=== PATIENT | female | born 1990 | race African-American/Black ===

== ENCOUNTER 2016-11-08 19:40 | Inpatient (IN) | payer OTHER ==
[2016-11-08] MEDS ORDERED: DINOPROSTONE 10 MG VAGINAL SUPPOSITORY VG ONE (20:30)
[2016-11-08] MEDS ORDERED: BUTORPHANOL TARTRATE 1 MG/ML VIAL IVPB ONE (20:50)
--- NOTE | 2016-11-08 20:58 | HP ---
Past Medical History - Admission Chief Complaint: induction of labor History of Present Illness: 26 yo @ 41 5/7 wks by LMP consistent with first trimester ultrasound, EDC ( 10/28/2016) complicated by: 1. Post-term - BPP / (11/03/16); NST reactive 2. Distant hx/o asthma, last attack as child 3. First trimester travel to [facility] - declines Zika screen Patient without acute complaints. Reports mild contractions began this morning at 0600. She denies leakage of fluid, vaginal bleeding. She reports movement. History Source: Patient Limitations to Obtaining History: No Limitations - Past Medical History Cardiovascular: No: HTN Pulmonary: Yes: Asthma ...: 4 ...Para: 0 ...Term: 0 ...: 0 ...Spon : 0 ...Induced : 3 ... Weeks Gestation by Dates: 41.3 ...EDC by Dates: 10/28/16 ...EDC by Sono: 10/27/16 - Past Surgical History Past Surgical History: Yes: Hernia Repair (umbilical hernia repair) Hx Myomectomy: No Hx Transabdominal Cerclage: No Additional Surgical History: eTOP - Alcohol/Substance Use Hx Alcohol Use: No History of Substance Use: reports: None - Social History Usual Living Arrangement: Yes: With Spouse History of Recent Travel: Yes Home Medications - Allergies Allergies/Adverse Reactions: Allergies Allergy/AdvReac Type Severity Reaction Status Date / Time Penicillins Allergy Verified 11/08/16 20:25 shellfish derived Allergy Verified 11/08/16 20:25 Family Disease History - Family Disease History Family History: Denies Review of Systems - Review of Systems Constitutional: reports: No Symptoms Cardiovascular: reports: No Symptoms Respiratory: reports: No Symptoms Gastrointestinal: reports: No Symptoms Genitourinary: reports: No Symptoms Musculoskeletal: reports: No Symptoms Neurological: reports: No Symptoms Endocrine: reports: No Symptoms Psychiatric: reports: No Symptoms Physical Exam - Maternity Constitutional: Yes: Well Nourished, No Distress, Calm Cardiovascular: Yes: Regular Rate and Rhythm Lungs: Clear to auscultation - Abdominal Exam/OB Number of Fetuses: Single Presentation: Vertex Contractions: Yes Regularity: Irregular Intensity: Moderate Monitor Mode: External Heart Rate (range): 125 Category: I Accelerations: Non-Uniform Decelerations: None - Vaginal Exam/OB Vaginal Bleediing: No Dilatation (cm): 1 Effacement (%): 20 Amniotic Membrane Status: Intact Station: -3 - Physical Exam Edema: No Psychiatric: Yes: Alert, Oriented - Labs Lab Results: PNL- O positive, antibody negative; RPR NR, HBsAg negative; Rubella Immune, HIV negative; GBS negative Hemorrhage Risk Assessment - Risk Factors Medium Risk Factors: Yes: None High Risk Factors: Yes: None Risk Score: 1 Risk Level: Medium Risk Assessment/Plan 26 yo @ 41 + weeks induction of labor, postdates 1. Admit to L&D, consents reviewed and signed. Reviewed risk of induction failure, heart rate changes, tachysystole, need for emergent delivery. She expressed understanding and all questions answered. 2. Routine labs collected and sent 3. Category I FHT, requires no intervention 4. GBS negative 5. Will offer pain medication upon request 6. Will continue to monitor
[2016-11-08 21:03] LABS: BASOPHIL 0.4 % (0-2.0); EOSINOPHIL 1.1 % (0-4.5); MCH 31.2 pg (25.7-33.7); MCHC 32.9 g/dl (32.0-36.0); MEAN CELL VOLUME 94.7 fl (80-96); MEAN PLT VOLUME 9.3 fl (7.5-11.1); NEUTROPHILS 63.6 % (42.8-82.8); PLATELET COUNT 176 K/MM3 (134-434)
[2016-11-08 21:20] LABS: INR 0.95 (0.82-1.09); PROTHROMBIN TIME (PATIENT) 10.4 SEC (9.98-11.88)
[2016-11-08 21:22] LABS: ACTIVATED PTT 33.6 SECONDS (26.9-34.4)
--- NOTE | 2016-11-08 21:25 | PN ---
Progress Note (short form) - Note Progress Note: Cervix: 1/20%/-3/posterior/soft Noonan score: 3 Cervidil placed in posterior fornix. Patient tolerated well.
[2016-11-08 21:29] LABS: CALCIUM 8.6 mg/dL (8.5-10.1); CREATININE 0.5 mg/dL (0.55-1.02)
[2016-11-08 21:49] LABS: HIV 1 & 2 AB NEGATIVE; HIV 1 AGp24 NEGATIVE
[2016-11-08 23:58] VITALS: BMI 31.6
[2016-11-09] MEDS ORDERED: TUBERCULIN PPD 5 TU/0.1ML SYRINGE (IN PATIENT USE ONLY) ID ONE (00:15)
[2016-11-09] MEDS: ELECTROLYTE-148 SOLN 1,000 ML IV SCH ×3 (01:30→20:00)
--- NOTE | 2016-11-09 09:13 | PN ---
Progress Note, Labor Vaginal Exam #1 Labor Exam Date: 11/09/16 Labor Exam Time: 08:45 Heart Rate (range): 120 Dilatation: 1-2 Effacement (%): 80 Amniotic Membrane Status: Intact Presentation: Vertex/Position Station: -3 Remarks: 26 yo induction of labor 1. Good effacement change, cervidil removed will start pitocin per protocol 2. GBS negative 3. Will offer pain medication as requested 4. Category I FHT 5. Will continue expectant management
[2016-11-09] MEDS ORDERED: PROMETHAZINE HCL 25 MG/1 ML VIAL IVPUSH ONE (10:00)
[2016-11-09] MEDS ORDERED: OXYTOCIN 15 UNITS/ LR 250 ML 250 ML IVPB SCH (10:20)
--- NOTE | 2016-11-09 17:53 | PN ---
Progress Note (short form) - Note Progress Note: cx 1 to 2 cm 80 vx -3 mi, fhr cat 1, contraction regular, strong, on pitocin
[2016-11-09] MEDS ORDERED: BUTORPHANOL TARTRATE 1 MG/ML VIAL IVPB ONE (18:45)
--- NOTE | 2016-11-09 20:43 | PN ---
Progress Note (short form) - Note Progress Note: cx 3 cm ,80. vx -3 mi, fhr cat 1 , wants to cont with induction, wants epidural
[2016-11-09] MEDS: FENTANYL/BUPIVACAINE/NS/PF - PCEA - 50 ML DISP.SYRIN EP SCH (21:00)
--- NOTE | 2016-11-10 04:50 | PN ---
Progress Note (short form) - Note Progress Note: 3 am cx 4 cm 70 vx -3, fhr cat 1 , contraction q 3 min
[2016-11-10] MEDS: ELECTROLYTE-148 SOLN 1,000 ML IV SCH ×4 (06:30→17:57)
--- NOTE | 2016-11-10 08:38 | PN ---
Progress Note (short form) - Note Progress Note: cx 4 cm 80 vx -2 mi, fhr car 1 . arom ,no fluid , fhr cat 1
[2016-11-10] MEDS: OXYTOCIN 15 UNITS/ LR 250 ML 250 ML IVPB SCH (10:45)
--- NOTE | 2016-11-10 14:22 | PN ---
Ante-Partal Exam - Subjective Subjective: pt is c/o pain with contractions. Vital Signs: Vital Signs Temperature 98.4 F 11/10/16 13:00 Pulse Rate 85 11/10/16 13:45 Respiratory Rate 18 11/10/16 13:45 Blood Pressure 133/83 11/10/16 13:45 O2 Sat by Pulse Oximetry (%) 98 11/10/16 13:45 Bleeding: No Headache: No Visual changes: No Right upper quadrant pain: No Pain (scale 1-10): 8 - Contractions Contractions: Yes (q3min) Regularity: Regular Intensity: Strong - Exam during Labor Heart Rate: 155 Variability: Moderate Heart Rate Location: [facility] Category: I Monitor Accelerations: Present Monitor Decelerations: None Exam: Vaginal Dilatation (cm): 4 Effacement (%): 80 Amniotic Membrane Status: Leaking Amniotic Fluid: Clear Presentation: Vertex Station: -3 Remarks: Small caput - Intrapartum Hemorrhage Risk Medium Risk Factors: Prolonged Oxytocin Use >24hrs High Risk Factors: None Risk Score: 1 Risk Level: Medium Risk - Assessment/Plan Assessment/Plan: 26 yo P0 induced for post term . 1. fetus with category 1 tracing but an incease in baseline noted. Pt is afebrile now. Possibility of evolving chorio is considered and discussed with pt. 2. No change in cervical exam in 6 hrs. Arrest of dilation explained to pt and her partner. section was offered and the pt declined. Risks and benefits of continued induction to pt and baby were explained. The risks of section were also explained. The pt declined IUPC but is requesting to keep increasing pitocin. The risks and benefits of pitocin explained, including distress, uterine rupture, uterine atony, etc. 3. The pt wants to wait longer and declined C/S
--- NOTE | 2016-11-10 16:30 | PN ---
Ante-Partal Exam - Subjective Subjective: No complaints, slept comfortably with epidural Vital Signs: Vital Signs Temperature 98.8 F 11/10/16 15:00 Pulse Rate 90 11/10/16 15:30 Respiratory Rate 18 11/10/16 15:30 Blood Pressure 117/50 11/10/16 15:30 O2 Sat by Pulse Oximetry (%) 95 11/10/16 15:30 Bleeding: No Headache: No Visual changes: No Right upper quadrant pain: No Pain (scale 1-10): 0 - Contractions Contractions: Yes (q3min) Regularity: Regular Intensity: Strong Monitor Mode: External - Exam during Labor Heart Rate: 135 Variability: Moderate Heart Rate Location: [facility] Category: I Monitor Accelerations: Present Monitor Decelerations: None Exam: Vaginal Dilatation (cm): 4 Effacement (%): 70 Amniotic Membrane Status: Leaking Amniotic Fluid: Clear Presentation: Vertex Station: -3 Remarks: Cervix is swollen - Intrapartum Hemorrhage Risk Medium Risk Factors: None High Risk Factors: None Risk Score: 0 Risk Level: Low Risk - Assessment/Plan Assessment/Plan: 26yo P0 with no cervical change c/w arrest of dilation. The pt was advised to undergo a delivery. Risks of infection, bleeding, distress, and intrapartum hemorrhage, shoulder dystocia, etc. explained. We also discussed the risks of section and I explained that all surgeries have risks, and no guarantees can be given. The pt refused the C/S. I discussed the risks of ignoring my advise. The pt's BF and mother were present in the room.
[2016-11-10] MEDS ORDERED: CITRIC ACID/SODIUM CITRATE 30 ML UNIT-DOSE CUP PO ONE (18:52)
--- NOTE | 2016-11-10 18:52 | PN ---
Ante-Partal Exam - Subjective Subjective: No new complaints, has pain with contractions. Vital Signs: Vital Signs Temperature 99.5 F 11/10/16 17:15 Pulse Rate 94 H 11/10/16 17:45 Respiratory Rate 18 11/10/16 17:45 Blood Pressure 115/54 11/10/16 17:45 O2 Sat by Pulse Oximetry (%) 97 11/10/16 17:45 Bleeding: No Headache: No Visual changes: No Right upper quadrant pain: No Pain (scale 1-10): 6 - Contractions Contractions: Yes Regularity: Regular Intensity: Mod/Strong Monitor Mode: External - Exam during Labor Heart Rate: 135 Variability: Moderate Heart Rate Location: [facility] Category: I Monitor Accelerations: Present Monitor Decelerations: None Exam: Vaginal Dilatation (cm): 4 Effacement (%): 60 Amniotic Membrane Status: Leaking Amniotic Fluid: Clear Station: -3 Remarks: Swollen/edematous cervix - Intrapartum Hemorrhage Risk Medium Risk Factors: Prolonged Oxytocin Use >24hrs Risk Score: 1 Risk Level: Medium Risk - Assessment/Plan Assessment/Plan: 26 yo P1 with arrest of dilation. Fetus with category I tracing. Pt finally agreed to C/Section. The risks of surgery were discussed again. The risks of hemorrhage, infection, injury to pt or baby explained. Now will gather the surgical team.
[2016-11-10 20:30] LABS: ARTERIAL BLD GAS O2 SATURATION 20.3 % (90-98.9); ARTERIAL BLOOD GAS BASE EXCESS -3.4 meq/l (-2-2); ARTERIAL BLOOD GAS HCO3 23.1 meq/L (22-26); ARTERIAL BLOOD GAS pH 7.29 (7.35-7.45)
[2016-11-10 20:33] LABS: ARTERIAL BLD GAS O2 SATURATION 54.7 % (90-98.9); ARTERIAL BLOOD GAS BASE EXCESS -4.3 meq/l (-2-2); ARTERIAL BLOOD GAS HCO3 20.7 meq/L (22-26); ARTERIAL BLOOD GAS pH 7.33 (7.35-7.45)
[2016-11-10 20:33] LABS: PT. ON O2? NO
[2016-11-10 20:36] LABS: PT. ON O2? NO
[2016-11-10 20:37] LABS: ARTERIAL BLOOD GAS PO2 30.4 mmHg (80-100)
[2016-11-10 20:40] LABS: ARTERIAL BLOOD GAS PO2 16.8 mmHg (80-100)
[2016-11-10] MEDS ORDERED: WITCH HAZEL 50% (TUCKS) 40 PAD/JAR PAD TP PRN (20:49)
[2016-11-10] MEDS ORDERED: BENZOCAINE 20% 57 GM BOTTLE TP PRN (20:49)
[2016-11-10] MEDS ORDERED: BENZOCAINE 28 GM HEMORRHOIDAL OINTMENT TP PRN (20:49)
[2016-11-10] MEDS ORDERED: METHYLERGONOVINE MALEATE 0.2 MG/1 ML AMP IM PRN (20:49)
[2016-11-10] MEDS ORDERED: oxyCODONE HCL 5 MG TABLET PO PRN (20:49)
--- NOTE | 2016-11-10 20:56 | OP ---
Operative Note - Note: Operative Date: 11/10/16 Pre-Operative Diagnosis: at EGA 41w5d. Arrest of dilation Operation: primary LTC/S Findings: Live baby girl in vtx presentation. No meconium in amniotic fluid. 9/9. Normal uterus, tubes ovaries. Post-Operative Diagnosis: Same as Pre-op Surgeon: Golden Pham Roving Frame Tender: Francisco Bernal Anesthesiologist/BATTERY CONTAINER TESTER ALUMINUM: Faviola Chavez Anesthesia: Epidural Specimens Removed: Placenta Estimated Blood Loss (mls): 800 Drains & Tubes with Location: Bowen Catheter Drains, Volume Out (mls): 300 Blood Volume Replaced (mls): 0 Fluid Volume Replaced (mls): 1,500 Operative Report Dictated: Yes
[2016-11-10] MEDS: D5W-LR W/ 20 UNITS OXYTOCIN 1,000 ML IV SCH (21:00)
[2016-11-10] MEDS ORDERED: ONDANSETRON 4 MG/2 ML VIAL IVPB PRN (21:14)
[2016-11-10] MEDS: IBUPROFEN 800 MG/8 ML IJ IVPB PRN (22:49)
--- NOTE | 2016-11-11 07:30 | OP ---
DATE OF OPERATION: 11/10/2016 PREOPERATIVE DIAGNOSIS: Postterm at estimated gestational age of 41 weeks 5 days, arrest of cervical dilation. POSTOPERATIVE DIAGNOSIS: Postterm at estimated gestational age of 41 weeks 5 days, arrest of cervical dilation, delivered. PROCEDURE: Primary low transverse section via Pfannenstiel skin incision. SURGEON: Harpal Pham MD HARNESS REPAIRER: Francisco Bernal MD ANESTHESIOLOGIST: Faviola Chavez MD ANESTHESIA: Epidural. COMPLICATIONS: None. IV FLUIDS: 1500 mL. URINE OUTPUT: 300 mL. ESTIMATED BLOOD LOSS: 300 mL. COMPLICATIONS: None. PATHOLOGY: Placenta. FINDINGS: A live baby girl in vertex presentation. No meconium in amniotic fluid. Apgars 9/9. Normal uterus, ovaries, and fallopian tubes. DESCRIPTION OF PROCEDURE: The patient was met preoperatively, and risks, benefits, and alternatives of surgery were discussed in detail. All questions were answered. The patient was then brought to the OR with the IV running. She was placed on the surgical table in the supine position with a leftward tilt. The level of epidural anesthesia was checked and found to be adequate. The patient was then prepped and draped in the usual sterile fashion. A Bowen catheter was left to drain to gravity. A time-out procedure was conducted as per standard protocol. The surgeons then proceeded with the operation. A Pfannenstiel skin incision was made with the knife approximately 2 cm above the pubic symphysis. The incision was carried down to the level of the fascia. The fascia was incised in the midline, and the incision was extended bilaterally. The fascia was then dissected away from the rectus muscles using sharp and blunt dissection. The rectus muscles were in the midline. The peritoneum was identified and entered sharply. The peritoneal incision was extended superiorly and inferiorly using Metzenbaum scissors. The bladder peritoneum was dissected away from the lower uterine segment using sharp dissection. The bladder was reflected downwards using the [place] retractor. The uterus was incised transversely in the lower uterine segment. The incision was extended bilaterally using bandage scissors. The baby was delivered from vertex presentation without complications. The baby was crying spontaneously. The umbilical cord was clamped and cut. The baby was handed to the awaiting still pump operator. The placenta was then delivered manually without complications. The uterus was cleared of all clots and debris. The uterine incision was repaired using a 0 Biosyn suture with a running, locking stitch. The uterine incision imbricated using a 0 Biosyn suture with a running stitch. Good hemostasis was confirmed. The bladder peritoneum was reapproximated using a 0 Biosyn suture. Once again, good hemostasis was confirmed. The operative site was irrigated using copious amounts of normal saline. Once the saline was aspirated, good hemostasis was confirmed. The peritoneum was then repaired using a 2-0 chromic suture. The rectus muscles were approximated in the midline using several interrupted 2-0 chromic sutures. The fascia was repaired using a 0 Vicryl suture with a running stitch. The subcutaneous adipose tissues and Kathleen fascia were approximated to eliminate space. The skin was closed with a 4-0 Vicryl suture using a subcutaneous stitch. Sponge, lap, instrument counts were correct. The patient was transferred to the recovery room in stable condition and awake. Geoffrey [id number] HUNTER
[2016-11-11 08:42] LABS: BASOPHIL 0.3 % (0-2.0); EOSINOPHIL 0.5 % (0-4.5); MCH 31.5 pg (25.7-33.7); MCHC 33.4 g/dl (32.0-36.0); MEAN CELL VOLUME 94.3 fl (80-96); MEAN PLT VOLUME 9.5 fl (7.5-11.1); NEUTROPHILS 78.5 % (42.8-82.8); PLATELET COUNT 164 K/MM3 (134-434); WHITE BLOOD COUNT 12.2 K/mm3 (4.0-10.0)
--- NOTE | 2016-11-11 09:48 | PN ---
Progress Note (short form) - Note Progress Note: Anesthesia posop note. POD#1, S/P with Epidural. Pat seen and examined, VSS. no complaints, OOB. No post anesthesia complications.Signing off.
[2016-11-11] MEDS ORDERED: DIPHTH,PERTUSS(ACELL),TET 0.5 ML DISP.SYRIN IM ONE (10:00)
[2016-11-11] MEDS: PRENATAL VITAMINS W/ FOLIC ACID TABLET (FP) PO SCH (10:13)
[2016-11-11] MEDS: ENOXAPARIN NA (PORCINE) 40 MG/0.4 ML DISP.SYRIN SQ SCH (10:13)
[2016-11-11] MEDS: IBUPROFEN 800 MG/8 ML IJ IVPB PRN (11:10)
--- NOTE | 2016-11-11 11:39 | PN ---
Post Progress Note - Subjective Subjective: No complaints Post Day: 1 Type of Delivery: Repeat C/S Vital Signs: Vital Signs Temperature 98.0 F 11/11/16 09:50 Pulse Rate 82 11/11/16 09:50 Respiratory Rate 18 11/11/16 11:00 Blood Pressure 116/62 11/11/16 09:50 O2 Sat by Pulse Oximetry (%) 100 11/10/16 21:45 Breast Exam: Yes: Soft Uterus: Yes: Fundus Firm, Fundus @ umbilicus, Non-tender Incision: Yes: Dressing dry and intact Abdomen/GI: Yes: Abdomen soft, Tolerating PO Lochia: Yes: Rubra Lochia, amount: Small Extremities: Yes: Calves non-tender Perineum: Yes: Intact Activity: Ambulating - Labs Labs: CBC WBC 12.2 K/mm3 (4.0-10.0) H D 11/11/16 07:35 RBC 3.69 M/mm3 (3.60-5.2) 11/11/16 07:35 Hgb 11.6 GM/dL (10.7-15.3) 11/11/16 07:35 Hct 34.8 % (32.4-45.2) 11/11/16 07:35 MCV 94.3 fl (80-96) 11/11/16 07:35 MCHC 33.4 g/dl (32.0-36.0) 11/11/16 07:35 RDW 13.0 % (11.6-15.6) 11/11/16 07:35 Plt Count 164 K/MM3 (134-434) 11/11/16 07:35 MPV 9.5 fl (7.5-11.1) 11/11/16 07:35 Neutrophils % 78.5 % (42.8-82.8) D 11/11/16 07:35 Lymphocytes % 7.1 % (8-40) L D 11/11/16 07:35 Monocytes % 13.6 % (3.8-10.2) H 11/11/16 07:35 Eosinophils % 0.5 % (0-4.5) 11/11/16 07:35 Basophils % 0.3 % (0-2.0) 11/11/16 07:35 Assessment/Plan 26yo P1 s/p primary LT C/S, doing well stable, afebrile. care instructions reviewed. Continue routine postop care. Ambulation encouraged.
[2016-11-11] MEDS ORDERED: diphenhydrAMINE HCL 25 MG CAPSULE (FP) PO ONE (16:15)
[2016-11-11] MEDS ORDERED: diphenhydrAMINE HCL 25 MG CAPSULE (FP) PO PRN ×2 (17:00→23:04)
[2016-11-11] MEDS: OXYTOCIN 15 UNITS/ LR 250 ML 250 ML IVPB SCH (17:20)
[2016-11-11] MEDS ORDERED: BISACODYL 10 MG SUPP.RECT RC PRN (20:50)
[2016-11-11] MEDS: SENNOSIDES/DOCUSATE COMBO (SENNA PLUS) TABLET (UD) PO PRN (22:11)
[2016-11-11] MEDS: SIMETHICONE 80 MG TAB.CHEW (FP) PO PRN (22:11)
[2016-11-11] MEDS: IBUPROFEN 600 MG TABLET (FP) PO PRN (22:12)
[2016-11-12] MEDS: FENTANYL/BUPIVACAINE/NS/PF - PCEA - 50 ML DISP.SYRIN EP SCH (08:12)
[2016-11-12] MEDS: PRENATAL VITAMINS W/ FOLIC ACID TABLET (FP) PO SCH (10:49)
[2016-11-12] MEDS: ENOXAPARIN NA (PORCINE) 40 MG/0.4 ML DISP.SYRIN SQ SCH (10:51)
[2016-11-12] MEDS ORDERED: DIPHTH,PERTUSS(ACELL),TET 0.5 ML DISP.SYRIN IM ONE (11:00)
[2016-11-12] MEDS: ACETAMINOPHEN 325 MG TABLET (FP) PO PRN ×2 (12:00→20:56)
[2016-11-12] MEDS: IBUPROFEN 600 MG TABLET (FP) PO PRN ×2 (12:00→20:57)
[2016-11-12] MEDS: SENNOSIDES/DOCUSATE COMBO (SENNA PLUS) TABLET (UD) PO PRN (20:56)
[2016-11-12] MEDS: SIMETHICONE 80 MG TAB.CHEW (FP) PO PRN (20:56)
--- NOTE | 2016-11-12 21:21 | PN ---
Post Progress Note - Subjective Subjective: No complaints Post Day: 2 Type of Delivery: Repeat C/S Vital Signs: Vital Signs Temperature 98.8 F 11/12/16 21:00 Pulse Rate 74 11/12/16 21:00 Respiratory Rate 20 11/12/16 21:00 Blood Pressure 117/75 11/12/16 21:00 O2 Sat by Pulse Oximetry (%) 100 11/10/16 21:45 Breast Exam: Yes: Soft Uterus: Yes: Fundus Firm, Fundus below umbilicus, Non-tender Incision: Yes: Sutures intact Abdomen/GI: Yes: Abdomen soft, Passing flatus, Tolerating PO Lochia: Yes: Rubra Lochia, amount: Small Extremities: Yes: Calves non-tender Perineum: Yes: Intact Activity: Ambulating - Labs Labs: CBC WBC 12.2 K/mm3 (4.0-10.0) H D 11/11/16 07:35 RBC 3.69 M/mm3 (3.60-5.2) 11/11/16 07:35 Hgb 11.6 GM/dL (10.7-15.3) 11/11/16 07:35 Hct 34.8 % (32.4-45.2) 11/11/16 07:35 MCV 94.3 fl (80-96) 11/11/16 07:35 MCHC 33.4 g/dl (32.0-36.0) 11/11/16 07:35 RDW 13.0 % (11.6-15.6) 11/11/16 07:35 Plt Count 164 K/MM3 (134-434) 11/11/16 07:35 MPV 9.5 fl (7.5-11.1) 11/11/16 07:35 Neutrophils % 78.5 % (42.8-82.8) D 11/11/16 07:35 Lymphocytes % 7.1 % (8-40) L D 11/11/16 07:35 Monocytes % 13.6 % (3.8-10.2) H 11/11/16 07:35 Eosinophils % 0.5 % (0-4.5) 11/11/16 07:35 Basophils % 0.3 % (0-2.0) 11/11/16 07:35 Assessment/Plan 26yo POD# 2 s/p primary LT C/S, doing well stable, afebrile. care instructions reviewed. Continue routine postop care. Ambulation encouraged.
[2016-11-13 07:21] LABS: BASOPHIL 0.7 % (0-2.0); EOSINOPHIL 3.1 % (0-4.5); MCH 31.9 pg (25.7-33.7); MCHC 33.6 g/dl (32.0-36.0); MEAN CELL VOLUME 94.9 fl (80-96); MEAN PLT VOLUME 9.1 fl (7.5-11.1); NEUTROPHILS 67.7 % (42.8-82.8); PLATELET COUNT 195 K/MM3 (134-434); RDW 13.2 % (11.6-15.6); WHITE BLOOD COUNT 7.9 K/mm3 (4.0-10.0)
--- NOTE | 2016-11-13 09:52 | PN ---
Post Progress Note - Subjective Subjective: No complaints Post Day: 3 Type of Delivery: Repeat C/S Vital Signs: Vital Signs Temperature 98.8 F 11/12/16 21:00 Pulse Rate 74 11/12/16 21:00 Respiratory Rate 20 11/12/16 21:00 Blood Pressure 117/75 11/12/16 21:00 O2 Sat by Pulse Oximetry (%) 100 11/10/16 21:45 Breast Exam: Yes: Soft, Cracked Nipples Uterus: Yes: Fundus Firm, Fundus below umbilicus, Non-tender Abdomen/GI: Yes: Abdomen soft, Passing flatus, Tolerating PO Lochia: Yes: Rubra Lochia, amount: Small Extremities: Yes: Calves non-tender, Edema Perineum: Yes: Intact Activity: Ambulating - Labs Labs: CBC WBC 7.9 K/mm3 (4.0-10.0) D 11/13/16 06:30 RBC 3.62 M/mm3 (3.60-5.2) 11/13/16 06:30 Hgb 11.6 GM/dL (10.7-15.3) 11/13/16 06:30 Hct 34.3 % (32.4-45.2) 11/13/16 06:30 MCV 94.9 fl (80-96) 11/13/16 06:30 MCHC 33.6 g/dl (32.0-36.0) 11/13/16 06:30 RDW 13.2 % (11.6-15.6) 11/13/16 06:30 Plt Count 195 K/MM3 (134-434) 11/13/16 06:30 MPV 9.1 fl (7.5-11.1) 11/13/16 06:30 Neutrophils % 67.7 % (42.8-82.8) 11/13/16 06:30 Lymphocytes % 14.1 % (8-40) D 11/13/16 06:30 Monocytes % 14.4 % (3.8-10.2) H 11/13/16 06:30 Eosinophils % 3.1 % (0-4.5) D 11/13/16 06:30 Basophils % 0.7 % (0-2.0) 11/13/16 06:30 Assessment/Plan 26yo POD# 3 s/p primary LT C/S, doing well stable, afebrile. care instructions discussed. Continue routine postop care. Ambulation encouraged.
[2016-11-13] MEDS: IBUPROFEN 600 MG TABLET (FP) PO PRN ×2 (10:06→19:26)
[2016-11-13] MEDS: ACETAMINOPHEN 325 MG TABLET (FP) PO PRN ×2 (10:07→19:27)
[2016-11-13] MEDS: ENOXAPARIN NA (PORCINE) 40 MG/0.4 ML DISP.SYRIN SQ SCH (10:08)
[2016-11-13] MEDS: PRENATAL VITAMINS W/ FOLIC ACID TABLET (FP) PO SCH (10:08)
[2016-11-13] MEDS: D5W-LR W/ 20 UNITS OXYTOCIN 1,000 ML IV SCH ×2 (19:19→19:20)
[2016-11-13] MEDS: OXYTOCIN 15 UNITS/ LR 250 ML 250 ML IVPB SCH (19:20)
[2016-11-13] MEDS: SIMETHICONE 80 MG TAB.CHEW (FP) PO PRN (19:26)
[2016-11-14] MEDS: SIMETHICONE 80 MG TAB.CHEW (FP) PO PRN (02:35)
[2016-11-14] MEDS: IBUPROFEN 600 MG TABLET (FP) PO PRN ×2 (02:35→10:34)
[2016-11-14] MEDS: ACETAMINOPHEN 325 MG TABLET (FP) PO PRN ×2 (02:36→10:35)
--- NOTE | 2016-11-14 09:16 | PN ---
Post Progress Note - Subjective Subjective: 26 yo P1 s/p 1' c/s no complains, voiding, ambulating, + flatus Post Day: 4 Type of Delivery: Primary C/S Vital Signs: Vital Signs Temperature 98.2 F 11/13/16 22:00 Pulse Rate 71 11/13/16 22:00 Respiratory Rate 18 11/13/16 22:00 Blood Pressure 120/73 11/13/16 22:00 O2 Sat by Pulse Oximetry (%) 100 11/10/16 21:45 Breast Exam: Yes: Engorged (Left axillary breast mainly) Uterus: Yes: Fundus Firm Incision: Yes: Dressing dry and intact, Sutures intact Abdomen/GI: Yes: Abdomen soft, Tolerating PO Lochia: Yes: Rubra Lochia, amount: Small Activity: Ambulating - Labs Labs: CBC WBC 7.9 K/mm3 (4.0-10.0) D 11/13/16 06:30 RBC 3.62 M/mm3 (3.60-5.2) 11/13/16 06:30 Hgb 11.6 GM/dL (10.7-15.3) 11/13/16 06:30 Hct 34.3 % (32.4-45.2) 11/13/16 06:30 MCV 94.9 fl (80-96) 11/13/16 06:30 MCHC 33.6 g/dl (32.0-36.0) 11/13/16 06:30 RDW 13.2 % (11.6-15.6) 11/13/16 06:30 Plt Count 195 K/MM3 (134-434) 11/13/16 06:30 MPV 9.1 fl (7.5-11.1) 11/13/16 06:30 Neutrophils % 67.7 % (42.8-82.8) 11/13/16 06:30 Lymphocytes % 14.1 % (8-40) D 11/13/16 06:30 Monocytes % 14.4 % (3.8-10.2) H 11/13/16 06:30 Eosinophils % 3.1 % (0-4.5) D 11/13/16 06:30 Basophils % 0.7 % (0-2.0) 11/13/16 06:30 Assessment/Plan 26 yo P1 POD # 4 VSS, Afibrile Doing well Breast feeding teaching prior to d/c D/C home NPV for 6 wks RTO 1 and 6 wks
[2016-11-14] MEDS: ENOXAPARIN NA (PORCINE) 40 MG/0.4 ML DISP.SYRIN SQ SCH (10:27)
[2016-11-14] MEDS: PRENATAL VITAMINS W/ FOLIC ACID TABLET (FP) PO SCH (10:27)
[2016-11-14 12:13] VITALS: BP 126/67; PULSE 66; TEMP 98
--- NOTE | 2016-11-15 14:46 | PATH ---
Surgical Pathology Report Patient Name: HARJINDER DE LA TORRE [facility]. Rec. #: [id number] /Age/Gender: 1990 (Age: 26) / F Account: [id number] Location: [facility] OBS/LEAK PATCHER Taken: 11/10/2016 Received: 11/13/2016 Reported: 11/15/2016 Physicians: Janina Yao Specimen(s) Received PLACENTA Clinical History 41.5 weeks, arrest of dilatation Final Diagnosis PLACENTA, DELIVERY: THIRD TRIMESTER PLACENTA WITH ACUTE CHORIOAMNIONITIS, SUBCHORIONIC FIBRIN DEPOSITION, AND 3 VESSEL UMBILICAL CORD. Electronically Signed Efrain Burnett M.D. Gross Description The specimen is received fresh labeled placenta and is a 499 gram, 17.5 x 16.0 x 2.5 cm. placenta with attached membranes and umbilical cord. The attached membranes are vick, translucent with focal opacities and display focal circumarginate insertion. The umbilical cord measures 15 cm. in length and averages 1.2 cm. in diameter. The cord inserts eccentrically, 4.5 cm. to the nearest margin. No true knots or strictures are identified. Cut surface of the umbilical cord reveals 3 vessels. The surface is collazo blue with abundant fibrin deposition and appropriate caliber vessels. The maternal surface is red-brown and intact. Sectioning reveals red-brown, spongy parenchyma. No lesions are identified. Knife Setter Assembler sections are submitted in three cassettes as follows: 1- membrane rolls and umbilical cord; 2-3- full thickness sections of placenta. 11/14/2016 [facility]11/14/2016
--- NOTE | 2016-11-27 09:17 | DS ---
Physical Exam-FUEL STORAGE TECHNICIAN Vital Signs: Vital Signs Temperature 98 F 11/14/16 10:00 Pulse Rate 66 11/14/16 10:00 Respiratory Rate 20 11/14/16 10:00 Blood Pressure 126/67 11/14/16 10:00 O2 Sat by Pulse Oximetry (%) 100 11/10/16 21:45 Labs: CBC, BMP 11/13/16 06:30 11/08/16 20:40 Delivery - Delivery Type of Anesthesia: Epidural Episiotomy/Laceration: None EBL (cc): 800 Delivery, Single - Stages of Labor Date 1st Stage Initiatied: 11/09/16 Time 1st Stage Initiated: 21:00 Date of Delivery: 11/10/16 Time of Delivery: 20:00 Time Placenta Delivered: 20:01 - Condition of Station Tender/Circus Agent Present: Yes Name: Altagracia Arana Gender: Female Weight: 8 lb 9 oz Position: Right, OT Total Hours ROM (Hrs/Mins): 12hours 1minute - 1 Minute Total Score: 9 5 Minutes Total Score: 9 - [place] Feeding Plan Initial Plan: Exclusive throughout hospitalization Discharge Summary Reason For Visit: INDUCTION Procedures: Principal: delivery Other Procedures: induction of labor Hospital Course: admitted for IOL, s/p cervidil and pitocin unchanged exam at HD #3, underwent primary delivery Uncomplicated postoperative course Stabe for discharge home on POD #4 Condition: Good - Instructions Diet, Activity, Other Instructions: Physical activity Resume your normal everyday activity as tolerated no heavy lifting or exercise until seen by your surgeon. You may walk unlimited remedios of and climb stairs. You may resume driving the car when you feel safe and comfortable behind the wheel. No sexual activity as instructed. Wound care If you have a bandage, leave it on, and keep dry for 48-72 hours. After that time discard the outer bandage. If they are tapes on the skin under the out of bandage leave them in place. They will peel off in the next 7 to 10 days. Do Not Peel them off. You may shower the day after surgery. If there are tapes present on the skin, you may shower over them. Diet There are no dietary restrictions. Eat healthy, high-fiber foods. Drink 6 to 8 glasses of liquid each day. This will assist in keeping your bowels are regular. Pain management You may take Tylenol or acetaminophen or Ibuprofen (for example, Motrin, Advil etc.) from my pain prescription medication is ordered should be taken as prescribed for moderate to severe pain. Call MD for any of the following: Severe pain not relieved by medication Fever of 101 or higher Excessive bleeding or drainage on dressing Inability to urinate Referrals: Golden Pham MD [Staff Physician] - Disposition: HOME - Home Medications Comprehensive Discharge Medication List: Ambulatory Orders Vit #76/Iron,Carb/FA [Pnv 29-1 Tablet] 1 each PO DAILY 11/09/16 Oxycodone HCl/Acetaminophen [Percocet 5-325 mg Tablet -] 1 - 2 tab PO Q6H PRN # 20 tab MDD 8 11/13/16
== END 2016-11-14 13:30 | disposition home or self-care (01) | DRG 766 ==
LOC: JLDR 19:40 → J3W 11-10 22:42
PROVIDERS: ADMIT Obstetrics & Gynecology; ATTEND Obstetrics & Gynecology
PROC: 10D00Z1 Extraction of Products of Conception, Low, Open Approach (ICD-10-PCS; principal; 2016-11-10)
DX: O62.1 Secondary uterine inertia (principal); O48.0 Post-term pregnancy; Z3A.41 41 weeks gestation of pregnancy; Z37.0 Single live birth
CPT/HCPCS: 36415; 36600; 80048; 82803; 85025; 85610; 85730; 86593; 86850; 86900; 86901; 87389; 88307-TC; 90715